=== PATIENT | female | born 1995 | race Caucasian/White ===

== ENCOUNTER → 2018-03-14 09:59 | Outpatient (CLI) | payer MEDICAID ==
[2018-03-14 12:08] LABS: HCG URINE NEGATIVE (NEGATIVE)
== END | disposition home or self-care (01) ==
LOC: D.MRI 03-13 10:00
PROVIDERS: Nurse Practitioner Family
DX: M54.5 Low back pain (principal); Z32.00 Encounter for pregnancy test, result unknown